=== PATIENT | female | born 1950 | race Caucasian/White ===

== ENCOUNTER 2016-12-19 14:40 | Emergency (ER) | payer MEDICARE ==
[2016-12-19] MEDS ORDERED: NS 0.9% 1000 ML* 1,000 ML IV ONE (16:19)
[2016-12-19 16:24] LABS: Hematocrit 41 % (35-47); Hemoglobin 13.2 g/dl (12.0-16.0); Mean Corpuscular HGB Conc 32 g/dl (31-36); Mean Corpuscular Hemoglobin 26 pg (27-31); Mean Corpuscular Volume 83 fL (80-97); Mean Platelet Volume 9 um3 (7.4-10.4); Red Blood Count 4.99 10^6/ul (4.0-5.4); Red Cell Distribution Width 15 % (10.5-15); White Blood Count 9.5 10^3/ul (3.5-10.8)
[2016-12-19 16:29] LABS: Urine Bilirubin Negative (Negative); Urine Glucose Negative (Negative); Urine Nitrite Negative (Negative)
[2016-12-19 16:38] LABS: Albumin 4.1 g/dL (3.2-5.2); BUN/Creatinine Ratio 18.9 (8-20); C Reactive Protein 8.48 mg/L (< 5.00); Calcium 9.7 mg/dL (8.6-10.3); EGFR African American 80.3 (>60); EGFR Non-African American 62.5 (>60); Globulin 3.8 g/dL (2-4); Potassium 3.7 mmol/L (3.5-5.0); Total Bilirubin 0.4 mg/dL (0.2-1.0); Total Protein 7.9 g/dL (6.4-8.9)
[2016-12-19 16:54] LABS: TSH (Thyroid Stimulating Horm) 0.74 mcIU/mL (0.34-5.60)
--- NOTE | 2016-12-19 16:57 | RAD ---
HISTORY: Chest pain COMPARISONS: None VIEWS:1: Single frontal portable view of the chest at 4:35 PM FINDINGS: LINES AND TUBES: None. CARDIOMEDIASTINAL SILHOUETTE: The cardiomediastinal silhouette is normal for portable technique. PLEURA: The costophrenic angles are sharp. No pleural abnormalities are noted. LUNG PARENCHYMA: There is hyperinflation. ABDOMEN: The upper abdomen is clear. There is no subphrenic gas. BONES AND SOFT TISSUES: No bone or soft tissue abnormalities are noted. IMPRESSION: HYPERINFLATION. NO ACTIVE CARDIOPULMONARY DISEASE.
[2016-12-19] MEDS ORDERED: Sucralfate TAB* 1 GM PO ONE (17:02)
[2016-12-19] MEDS ORDERED: Pantoprazole IV* 40 MG IV ONE (17:02)
[2016-12-19] MEDS ORDERED: Hyoscyamine TAB* 0.125 MG PO ONE (19:34)
[2016-12-19] MEDS ORDERED: Ondansetron INJ* 2 MG/ML VIAL IV ONE (19:34)
[2016-12-19 22:41] VITALS: BP 128/63
--- NOTE | 2016-12-19 22:53 | ED ---
Marcy Dumas Matthew, scribed for Rodolfo Savage MD on 12/19/16 at 1648 . Abdominal Pain/Female - HPI Summary HPI Summary: A 66 y/o female presents to the ED with gradually worsening, constant epigastric abdominal pain since 10:00 today. The pain is rated 7/10 in severity and described as squeezing. Associated symptoms include mid sternal chest pain and nausea. The patient denies vomiting and urinary symptoms. Nothing alleviates or worsens the pain. Currently, the pain has began to gradually alleviate. She had a normal BM today. SHx includes cholecystectomy. Hx of IBS. - History of Current Complaint Chief Complaint: EDAbdPain Stated Complaint: CHEST AND ABD PAIN Time Seen by Provider: 12/19/16 16:34 Hx Obtained From: Patient ?: No Onset/Duration: Gradual Onset, Lasting Hours, Still Present Timing: Constant Severity Initially: Moderate Severity Currently: Mild Pain Intensity: 7 Pain Scale Used: 0-10 Numeric Location: Epigastric Character: Other: - Squeezing/Pressure Aggravating Factor(s): Nothing Alleviating Factor(s): Nothing Associated Signs and Symptoms: Positive: Chest Pain - mid sternal Allergies/Adverse Reactions: Allergies Allergy/AdvReac Type Severity Reaction Status Date / Time Calamine Allergy Mild Hives Verified 12/19/16 20:29 Latex Allergy Mild Hives Verified 12/19/16 20:29 Penicillins [PCN] Allergy Mild Hives Verified 12/19/16 20:29 brazil nuts Allergy Severe Airway Uncoded 12/19/16 20:29 Obstruction PMH/Surg Hx/FS Hx/Imm Hx GI History: Reports: Hx Gastroesophageal Reflux Disease, Hx Irritable Bowel Musculoskeletal History: Reports: Hx Arthritis, Other Musculoskeletal History - Hx of OSTEOPENIA - Cancer History Hx Chemotherapy: No Hx Radiation Therapy: No Infectious Disease History: No Infectious Disease History: Denies: Traveled Outside the [place] in Last 30 Days - Family History Family History: No FHx of breast CA - Social History Alcohol Use: None Substance Use Type: Reports: None Smoking Status (MU): Never Smoked Tobacco Review of Systems Constitutional: Negative Eyes: Negative ENT: Negative Positive: Chest Pain - mid sternal Respiratory: Negative Positive: Abdominal Pain - epigastric pain , Nausea. Negative: Vomiting Genitourinary: Negative Positive: no symptoms reported Musculoskeletal: Negative Skin: Negative Neurological: Negative Psychological: Normal All Other Systems Reviewed And Are Negative: Yes Physical Exam Triage Information Reviewed: Yes Vital Signs On Initial Exam: Initial Vitals Temp Pulse Resp BP Pulse Ox 99.0 F 83 15 148/81 97 12/19/16 14:44 12/19/16 14:44 12/19/16 14:44 12/19/16 14:44 12/19/16 14:44 Vital Signs Reviewed: Yes Appearance: Positive: Well-Appearing, No Pain Distress Skin: Positive: Warm, Skin Color Reflects Adequate Perfusion, Dry Head/Face: Positive: Normal Head/Face Inspection Eyes: Positive: Normal ENT: Positive: Normal ENT inspection Neck: Positive: Supple, Nontender Respiratory/Lung Sounds: Positive: Clear to Auscultation, Breath Sounds Present Cardiovascular: Positive: RRR Abdomen Description: Positive: Soft, Other: - mild epigastric tenderness Bowel Sounds: Positive: Present Musculoskeletal: Positive: Normal, Strength/ROM Intact Neurological: Positive: Normal Psychiatric: Positive: Normal, Affect/Mood Appropriate Diagnostics - Vital Signs Vital Signs Temp Pulse Resp BP Pulse Ox 12/19/16 16:06 79 20 96 12/19/16 16:05 152/75 12/19/16 14:44 99.0 F 83 15 148/81 97 - Laboratory Lab Results: Lab Results 12/19/16 12/19/16 12/19/16 Range/Units 15:27 16:05 16:05 WBC 9.5 (3.5-10.8) 10^3/ul RBC 4.99 (4.0-5.4) 10^6/ul Hgb 13.2 (12.0-16.0) g/dl Hct 41 (35-47) % MCV 83 (80-97) fL MCH 26 L (27-31) pg MCHC 32 (31-36) g/dl RDW 15 (10.5-15) % Plt Count 197 (150-450) 10^3/ul MPV 9 (7.4-10.4) um3 Neut % (Auto) 90.8 H (38-83) % Lymph % (Auto) 5.0 L (25-47) % [place] % (Auto) 3.2 (1-9) % Eos % (Auto) 0.5 (0-6) % Baso % (Auto) 0.5 (0-2) % Absolute Neuts (auto) 8.7 H (1.5-7.7) 10^3/ul Absolute Lymphs (auto) 0.5 L (1.0-4.8) 10^3/ul Absolute Monos (auto) 0.3 (0-0.8) 10^3/ul Absolute Eos (auto) 0.1 (0-0.6) 10^3/ul Absolute Basos (auto) 0 (0-0.2) 10^3/ul Absolute Nucleated RBC 0 10^3/ul Nucleated RBC % 0 INR (Anticoag Therapy) 0.87 L (0.89-1.11) APTT 28.2 (26.0-36.3) seconds Sodium (133-145) mmol/L Potassium (3.5-5.0) mmol/L Chloride (101-111) mmol/L Carbon Dioxide (22-32) mmol/L Anion Gap (2-11) mmol/L BUN (6-24) mg/dL Creatinine (0.51-0.95) mg/dL Est GFR ( Amer) (>60) Est GFR (Non-Af Amer) (>60) BUN/Creatinine Ratio (8-20) Glucose (70-100) mg/dL Lactic Acid (0.5-2.0) mmol/L Calcium (8.6-10.3) mg/dL Magnesium (1.9-2.7) mg/dL Total Bilirubin (0.2-1.0) mg/dL AST (13-39) U/L ALT (7-52) U/L Alkaline Phosphatase (34-104) U/L Total Creatine Kinase (10-223) U/L CK-MB (CK-2) Troponin I (<0.04) ng/mL C-Reactive Protein (< 5.00) mg/L Total Protein (6.4-8.9) g/dL Albumin (3.2-5.2) g/dL Globulin (2-4) g/dL Albumin/Globulin Ratio (1-3) Lipase (11.0-82.0) U/L TSH Urine Color Yellow Urine Appearance Clear Urine pH 6.0 (5-9) Ur Specific [place] 1.016 (1.010-1.030) Urine Protein Negative (Negative) Urine Ketones Negative (Negative) Urine Blood Negative (Negative) Urine Nitrate Negative (Negative) Urine Bilirubin Negative (Negative) Urine Urobilinogen Negative (Negative) Ur Leukocyte Esterase Negative (Negative) Urine Glucose Negative (Negative) Urine Ascorbic Acid * H (Negative) 12/19/16 12/19/16 Range/Units 16:05 16:05 WBC (3.5-10.8) 10^3/ul RBC (4.0-5.4) 10^6/ul Hgb (12.0-16.0) g/dl Hct (35-47) % MCV (80-97) fL MCH (27-31) pg MCHC (31-36) g/dl RDW (10.5-15) % Plt Count (150-450) 10^3/ul MPV (7.4-10.4) um3 Neut % (Auto) (38-83) % Lymph % (Auto) (25-47) % [place] % (Auto) (1-9) % Eos % (Auto) (0-6) % Baso % (Auto) (0-2) % Absolute Neuts (auto) (1.5-7.7) 10^3/ul Absolute Lymphs (auto) (1.0-4.8) 10^3/ul Absolute Monos (auto) (0-0.8) 10^3/ul Absolute Eos (auto) (0-0.6) 10^3/ul Absolute Basos (auto) (0-0.2) 10^3/ul Absolute Nucleated RBC 10^3/ul Nucleated RBC % INR (Anticoag Therapy) (0.89-1.11) APTT (26.0-36.3) seconds Sodium 133 (133-145) mmol/L Potassium 3.7 (3.5-5.0) mmol/L Chloride 99 L (101-111) mmol/L Carbon Dioxide 29 (22-32) mmol/L Anion Gap 5 (2-11) mmol/L BUN 17 (6-24) mg/dL Creatinine 0.90 (0.51-0.95) mg/dL Est GFR ( Amer) 80.3 (>60) Est GFR (Non-Af Amer) 62.5 (>60) BUN/Creatinine Ratio 18.9 (8-20) Glucose 118 H (70-100) mg/dL Lactic Acid 1.6 (0.5-2.0) mmol/L Calcium 9.7 (8.6-10.3) mg/dL Magnesium 2.0 (1.9-2.7) mg/dL Total Bilirubin 0.40 (0.2-1.0) mg/dL AST 15 (13-39) U/L ALT 12 (7-52) U/L Alkaline Phosphatase 61 (34-104) U/L Total Creatine Kinase 89 (10-223) U/L CK-MB (CK-2) Pending Troponin I 0.00 (<0.04) ng/mL C-Reactive Protein 8.48 H (< 5.00) mg/L Total Protein 7.9 (6.4-8.9) g/dL Albumin 4.1 (3.2-5.2) g/dL Globulin 3.8 (2-4) g/dL Albumin/Globulin Ratio 1.1 (1-3) Lipase 55 (11.0-82.0) U/L TSH Pending Urine Color Urine Appearance Urine pH (5-9) Ur Specific [place] (1.010-1.030) Urine Protein (Negative) Urine Ketones (Negative) Urine Blood (Negative) Urine Nitrate (Negative) Urine Bilirubin (Negative) Urine Urobilinogen (Negative) Ur Leukocyte Esterase (Negative) Urine Glucose (Negative) Urine Ascorbic Acid (Negative) Result Diagrams: 12/19/16 16:05 12/19/16 16:05 Lab Statement: Any lab studies that have been ordered have been reviewed, and results considered in the medical decision making process. - Radiology CXR Xray Interpretation: No Acute Changes - IMPRESSION: HYPERINFLATION. NO ACTIVE CARDIOPULMONARY DISEASE. Radiology Interpretation Completed By: Radiologist - EKG 14:47 Cardiac Rate: NL - 84 bpm EKG Rhythm: Sinus Rhythm Abdominal Pain Fem Course/Dx - Course Course Of Treatment: A 66 y/o female presents to the ED with gradually worsening , constant epigastric abdominal pain since 10:00 today. Labs were reviewed. CXR shows no active cardiopulmonary disease. EKG shows NSR at 84 bpm. In the ED course, the patient was given Anaspaz IV fluids, Zofran, Protonix, and Carafate. The patient did well in the ED and will be discharged home to follow- up with her PCP. While here she began to have some episodes of diarrhea and this may be viral. - Diagnoses Provider Diagnoses: Abdominal pain Discharge - Discharge Plan Condition: Stable Disposition: HOME Patient Education Materials: Abdominal Pain (ED) Referrals: [facility] PHYSICIAN REFERRAL [Outside] Additional Instructions: Please follow-up with your primary care physician in 2 days. The documentation as recorded by the Marcy arriaga Matthew accurately reflects the service I personally performed and the decisions made by me, Rodolfo Savage MD.
== END 2016-12-19 22:46 | disposition home or self-care (01) ==
LOC: ED 14:40
DX: R10.13 Epigastric pain (principal); K21.9 Gastro-esophageal reflux disease without esophagitis; M85.80 Other specified disorders of bone density and structure, unspecified site; Z88.0 Allergy status to penicillin
CPT/HCPCS: 36415; 71010; 80053; 81003; 82550; 82553; 83605; 83690; 83735; 83880; 84443; 84484; 85025; 85610; 85730; 86140; 93005; 96360; 96374; 96375; A9270-GY; J2405

== ENCOUNTER 2018-04-04 06:50 | Day surgery (SDC) | payer MEDICARE ==
[~2018-04-04 06:50] MED LIST: Acetaminophen TAB* 325 MG PO PRN; Buffered Lidocaine 0.9% SYRIN* 5 ML/SYR SYRINGE INTRADERM ONE
[2018-04-04] MEDS ORDERED: Midazolam* 1 MG/ML 2 ML VIAL (2 MG) ONE ×2 (07:25→07:36)
[2018-04-04 07:58] VITALS: BP 158/74
[2018-04-04] MEDS ORDERED: Ketorolac 0.5% OPHTH (NF) 0.5 % 5 ML BTL ONE (13:01)
[2018-04-04] MEDS ORDERED: Cyclopentolate 1% OPTH.SOL* 2 ML BTL ONE (13:01)
[2018-04-04] MEDS ORDERED: Lidocaine 1%* 5 ML VIAL ONE (13:01)
[2018-04-04] MEDS ORDERED: Tropicamide 1% OPTH.SOL* BTL ONE (13:01)
[2018-04-04] MEDS ORDERED: Phenylephrine 2.5% OPTH.SOL* 2 ML BTL ONE (13:01)
[2018-04-04] MEDS ORDERED: Neomycin/Polymy/Dex OPHTH.OIN* 3.5 GM ONE (13:01)
[2018-04-04] MEDS ORDERED: Tetracaine 0.5% OPTH.SOL 4 ML* 1 DROP BTL ONE (13:01)
--- NOTE | 2018-04-04 15:52 | OP ---
DATE OF OPERATION: 04/04/18 [facility] DATE OF : 48 SURGEON: Dr. Otoniel Zamora REMOTE SENSING ENGINEER: None. ANESTHESIA: Topical with intravenous sedation. PRE-OP DIAGNOSIS: Cataract, left eye. POST-OP DIAGNOSIS: Cataract, left eye. OPERATIVE PROCEDURE: Phacoemulsification and cataract extraction with posterior chamber intraocular lens implant, left eye. COMPLICATIONS: None. BLOOD LOSS: None. DESCRIPTION OF PROCEDURE: The patient was brought to the operating room and received a small amount of intravenous sedation. A drop of Tetracaine was placed in her left eye. She was prepped and draped in the usual sterile fashion for ophthalmic surgery and attention was directed to the left eye where a speculum was placed. A paracentesis was created at the 5 o'clock position and 0.1 cc of 1 percent preservative-free Lidocaine was injected into the anterior chamber followed by DisCoVisc. The eye was digitally stabilized while a 2.75 mm keratome was used to create a triplanar clear corneal incision at the 3 o'clock position. A continuous curvilinear capsulorrhexis was created with a cystotome and Utrata forceps. BSS on a cannula was used to hydrodissect the lens from the capsule. Phacoemulsification was performed in a divide-and- conquer technique to create four fragments which were removed. Residual cortical material was removed with irrigation and aspiration. DisCoVisc was used to inflate the capsular bag and an AU00T0 20.0 diopter lens was folded and inserted into the capsular bag. DisCoVisc was removed using irrigation and aspiration. BSS on a cannula was used to hydrate the corneal stroma and seal the wound. At the end of the case the pupil was round and the lens was centered. The eye was of normal pressure and the wound was water tight. The speculum was removed and topical Maxitrol ointment was placed on the surface of the eye. The eye was closed, patched and shielded and the patient was sent to the recovery room in stable condition with post operative instructions and follow-up appointment given. [id number]/CPS #: [id number] ANIL
== END 2018-04-04 07:50 | disposition home or self-care (01) ==
LOC: OREAST 06:50
PROVIDERS: ATTEND Ophthalmology
DX: H25.042 Posterior subcapsular polar age-related cataract, left eye (principal); E78.5 Hyperlipidemia, unspecified; K21.9 Gastro-esophageal reflux disease without esophagitis
CPT/HCPCS: A9270-GY; J2250; V2632

== ENCOUNTER 2018-04-11 06:16 | Day surgery (SDC) | payer MEDICARE ==
[2018-04-11] MEDS ORDERED: fentaNYL* 50 MCG/ML 2 ML VIAL (100 MCG VIAL) ONE (07:11)
[2018-04-11] MEDS ORDERED: Midazolam* 1 MG/ML 2 ML VIAL (2 MG) ONE (07:11)
[2018-04-11 07:59] VITALS: BP 137/74
[2018-04-11] MEDS ORDERED: Lidocaine 1%* 5 ML VIAL ONE (09:06)
[2018-04-11] MEDS ORDERED: Tetracaine 0.5% OPTH.SOL 4 ML* 1 DROP BTL ONE (09:06)
[2018-04-11] MEDS ORDERED: Ketorolac 0.5% OPHTH (NF) 0.5 % 5 ML BTL ONE (09:06)
[2018-04-11] MEDS ORDERED: Phenylephrine 2.5% OPTH.SOL* 2 ML BTL ONE (09:06)
[2018-04-11] MEDS ORDERED: Neomycin/Polymy/Dex OPHTH.OIN* 3.5 GM ONE (09:06)
[2018-04-11] MEDS ORDERED: Tropicamide 1% OPTH.SOL* BTL ONE (09:06)
[2018-04-11] MEDS ORDERED: Cyclopentolate 1% OPTH.SOL* 2 ML BTL ONE (09:06)
--- NOTE | 2018-04-11 22:32 | OP ---
DATE OF OPERATION: 04/11/18 [facility] DATE OF : 48 SURGEON: Dr. Otoniel Zamora. PHOTOLITHOGRAPHIC STRIPPER: None. ANESTHESIA: Topical with intravenous sedation. PRE-OP DIAGNOSIS: Cataract, right eye. POST-OP DIAGNOSIS: Cataract, right eye. OPERATIVE PROCEDURE: Phacoemulsification and cataract extraction with posterior chamber intraocular lens implant, right eye. COMPLICATIONS: None. BLOOD LOSS: None. DESCRIPTION OF PROCEDURE: The patient was brought to the operating room and received a small amount of intra-venous sedation. A drop of Tetracaine was placed in her right eye. She was prepped and draped in the usual sterile fashion for ophthalmic surgery and attention was directed to the right eye where a speculum was placed. A paracentesis was created at the 11 o'clock position and 0.1 cc of 1 percent preservative-free Lidocaine was injected into the anterior chamber followed by DisCoVisc. The eye was digitally stabilized while a 2.75 mm keratome was used to create a triplanar clear corneal incision at the 9 o'clock position. A continuous curvilinear capsulorrhexis was created with a cystotome and Utrata forceps. BSS on a cannula was used to hydrodissect the lens from the capsule. Phacoemulsification was performed in a divide-and- conquer technique to create four fragments which were removed. Residual cortical material was removed with irrigation and aspiration. DisCoVisc was used to inflate the capsular bag and an AU00T0 20.5 diopter lens was folded and inserted into the capsular bag. DisCoVisc was removed using irrigation and aspiration. BSS on a cannula was used to hydrate the corneal stroma and seal the wound. At the end of the case the pupil was round and the lens was centered. The eye was of normal pressure and the wound was water tight. The speculum was removed and topical Maxitrol ointment was placed on the surface of the eye. The eye was closed, patched and shielded and the patient was sent to the recovery room in stable condition with post operative instructions and follow-up appointment given. [id number]/CPS #: [id number] ANIL
== END 2018-04-11 08:06 | disposition home or self-care (01) ==
LOC: OREAST 06:16
PROVIDERS: ATTEND Ophthalmology
DX: H25.041 Posterior subcapsular polar age-related cataract, right eye (principal); K21.9 Gastro-esophageal reflux disease without esophagitis; E78.5 Hyperlipidemia, unspecified; G62.9 Polyneuropathy, unspecified; M19.90 Unspecified osteoarthritis, unspecified site; M85.80 Other specified disorders of bone density and structure, unspecified site; K58.9 Irritable bowel syndrome, unspecified
CPT/HCPCS: A9270-GY; J2250; J3010; V2632

== ENCOUNTER 2019-07-09 10:05 | Observation (INO) | payer MEDICARE ==
--- OUTSIDE RECORDS SUMMARY | 2019-07-09 10:13 | XMS REPORT | Continuity of Care Document ---
:1950 External Reference #:[id number] Author Name Otoneil Zamora M.D. Address [address] [place] [address] Problems Description No Information Available Social History Type Date Description Comments Sex Unknown ETOH Use Never used alcohol Tobacco Use Start: Unknown Patient has never smoked Smoking Status Reviewed: 06/27/19 Patient has never smoked Allergies, Adverse Reactions, Alerts Active Allergies Reaction Severity Comments Date Penicillin V 03/02/2017 Latex 03/02/2017 [place] Nuts 03/02/2017 Medications Active Medications SIG Qnty Indications Ordering Provider Date Omeprazole 20mg Unknown Tablets DR Immunizations Description No Information Available Vital Signs Date Vital Result Comment 06/27/2019 2:01pm Intraocular Pressure Right Eye 14 mmHg Intraocular Pressure Left Eye 14 mmHg 04/18/2018 9:56am Intraocular Pressure Right Eye 16 mmHg Intraocular Pressure Left Eye 16 mmHg Results Description No Information Available Procedures Date Code Description Status 06/27/2019 55972 Ophthalmoscopy Subsequent Completed 06/27/2019 99463 Oct Retina Completed 06/27/2019 32875 Eye Exam Est Comprehensive Completed Medical Devices Description No Information Available Encounters Description No Information Available Assessments Date Code Description Provider 06/27/2019 H26.491 Other secondary cataract, right eye Otoniel Zamora M.D. 06/27/2019 H26.492 Other secondary cataract, left eye Otoniel Zamora M.D. 06/27/2019 H35.371 Puckering of macula, right eye Otoniel Zamora M.D. Plan of Treatment 06/27/2019 - Otoniel Zamora M.D.H26.491 Other secondary cataract, right eyeH26.492 Other secondary cataract, left eyeH35.371 Puckering of macula, right eyeFollow up:yag cap od, then os then Dr Anaya Functional Status Description No Information Available Mental Status Description No Information Available Referrals Description No Information Available
[2019-07-09 10:42] LABS: ABS Eosinophils 0.1 10^3/ul (0-0.6); ABS Lymphocytes 2.1 10^3/ul (1.0-4.8); ABS Monocytes 0.6 10^3/ul (0-0.8); ABS Neutrophils 4.3 10^3/ul (1.5-7.7); Eosinophil % 1.3 %; Hematocrit 39 % (35-47); Hemoglobin 12.9 g/dL (12.0-16.0); Lymphocyte % 29.3 %; Mean Corpuscular HGB Conc 33 g/dL (31-36); Mean Corpuscular Hemoglobin 28 pg (27-31); Mean Corpuscular Volume 84 fL (80-97); Mean Platelet Volume 9.5 fL (7.4-10.4); Nucleated Red Blood Cells % 0.1; Platelet Count 208 10^3/uL (150-450); Red Blood Count 4.67 10^6 /uL (3.70-4.87); Red Cell Distribution Width 15 % (10-15); White Blood Count 7.1 10^3/uL (3.5-10.8)
[2019-07-09 10:55] LABS: Activated Partial Thrombo Time 35.7 seconds (26.0-38.0); INR 0.94 (0.82-1.09)
--- NOTE | 2019-07-09 11:01 | ED ---
HPI Chest Pain - HPI Summary HPI Summary: This pt is a 68 y/o female presenting to [facility] c/o sudden onset of chest pain today. Pt reports she was at the [place] sitting down in the waiting room for her physical when she began to have midsternal chest pain. She describes the chest pain as pressure with radiation to her neck and jaw. Pt notes her chest pain resolved after 20 minutes. Currently she notes she feels a "pinch feeling" in her chest, but her pain is better than at onset. Pt reports she has chest pain periodically. She states she had chest pain one day while ambulating but resolved on its own. Pt notes her chest pain generally is in the center and when it does get intense it radiates to her neck and jaw. Denies hx of DC. PMHx includes high cholesterol (for which she takes OTC medication), endometriosis. Denies taking any prescribed medications on a daily basis. Pt takes a baby aspirin every night. Denies tobacco or alcohol use. - History of Current Complaint Chief Complaint: EDChestPainROMI Time Seen by Provider: 07/09/19 10:28 Hx Obtained From: Patient Onset/Duration: Started Hours Ago, Still Present Timing: Lasting Minutes - 20 minutes Current Severity: Mild Pain Intensity: 2 Pain Scale Used: 0-10 Numeric Chest Pain Location: Mid Sternal Chest Pain Radiates: Yes Chest Pain Radiates To:: Jaw, Neck Character: Pressure/Squeezing - Pressure Aggravating Factor(s): Nothing Alleviating Factor(s): Nothing Associated Signs and Symptoms: Positive: Chest Pain. Negative: Fever, Chills, Nausea, Vomiting - Allergy/Home Medications Allergies/Adverse Reactions: Allergies Allergy/AdvReac Type Severity Reaction Status Date / Time [place] nut Allergy Severe Airway Verified 07/09/19 14:31 Obstruction calamine Allergy Hives Verified 07/09/19 10:32 latex Allergy Hives Verified 07/09/19 10:32 Penicillins Allergy Hives Verified 07/09/19 10:32 Home Medications: Home Medications Plant Stanol Deisy [Cholestoff Plus] 450 mg PO QPM 07/09/19 [History Confirmed 07/09/19] Plant Stanol Deisy [Cholestoff Plus] 900 mg PO QAM 07/09/19 [History Confirmed 07/09/19] PMH/Surg Hx/FS Hx/Imm Hx Endocrine/Hematology History: Reports: Hx Anemia - many years ago Respiratory History: Denies: Other Respiratory Problems/Disorders GI History: Reports: Hx Gastroesophageal Reflux Disease, Hx Irritable Bowel Denies: Other GI Disorders Musculoskeletal History: Reports: Hx Arthritis - left hip and fingers, Other Musculoskeletal History - Hx of OSTEOPENIA Sensory History: Reports: Hx Cataracts - costa, Hx Contacts or Glasses - glasses Denies: Hx Hearing Aid Opthamlomology History: Reports: Hx Cataracts - costa, Hx Contacts or Glasses - glasses Neurological History: Reports: Hx Nerve Disease - neuropathy feet and right thigh, Other Neuro Impairments/Disorders - Cancer History Hx Chemotherapy: No Hx Radiation Therapy: No - Surgical History Surgical History: Yes Surgery Procedure, Year, and Place: laparoscopy d/c 1985, [facility] [place]. gallbladder, 2999, [facility] [place] Hx Anesthesia Reactions: Yes - nausea Infectious Disease History: No Infectious Disease History: Denies: Traveled Outside the [place] in Last 30 Days - Family History Family History: No FHx of breast CA - Social History Alcohol Use: None Substance Use Type: Reports: None Smoking Status (MU): Never Smoked Tobacco Review of Systems Negative: Fever, Chills Positive: Chest Pain Negative: Vomiting, Nausea All Other Systems Reviewed And Are Negative: Yes Physical Exam - Summary Physical Exam Summary: GENERAL: Patient is a well-developed and nourished female who is lying comfortable in the stretcher. Patient is not in any acute respiratory distress. HEAD AND FACE: Normocephalic EYES: PERRLA, EOMI x 2. EARS: Hearing grossly intact. MOUTH: Oropharynx within normal limits. NECK: Supple, trachea is midline, no adenopathy, no JVD, no carotid bruit. CHEST: Symmetric, no tenderness at palpation LUNGS: Clear to auscultation bilaterally. No wheezing or crackles. CVS: Regular rate and rhythm, S1 and S2 present, no murmurs or gallops appreciated. ABDOMEN: Soft, non-tender. Bowel sounds are normal. No abnormal abdominal pulsations. EXTREMITIES: Full ROM in all major joints, no edema, no cyanosis or clubbing. NEURO: Alert and oriented x 3. No acute neurological deficits. Speech is normal and follows commands. SKIN: Dry and warm Triage Information Reviewed: Yes Vital Signs On Initial Exam: Initial Vitals Temp Pulse Resp BP Pulse Ox 98.0 F 55 20 181/76 99 07/09/19 10:12 07/09/19 10:12 07/09/19 10:12 07/09/19 10:12 07/09/19 10:12 Vital Signs Reviewed: Yes Diagnostics - Vital Signs Vital Signs Temp Pulse Resp BP Pulse Ox 07/09/19 10:12 98.0 F 55 20 181/76 99 - Laboratory Lab Results: Lab Results 07/09/19 07/09/19 Range/Units 10:32 10:32 WBC 7.1 (3.5-10.8) 10^3/uL RBC 4.67 (3.70-4.87) 10^6 /uL Hgb 12.9 (12.0-16.0) g/dL Hct 39 (35-47) % MCV 84 (80-97) fL MCH 28 (27-31) pg MCHC 33 (31-36) g/dL RDW 15 (10-15) % Plt Count 208 (150-450) 10^3/uL MPV 9.5 (7.4-10.4) fL Neut % (Auto) 60.5 % Lymph % (Auto) 29.3 % [place] % (Auto) 8.3 % Eos % (Auto) 1.3 % Baso % (Auto) 0.6 % Absolute Neuts (auto) 4.3 (1.5-7.7) 10^3/ul Absolute Lymphs (auto) 2.1 (1.0-4.8) 10^3/ul Absolute Monos (auto) 0.6 (0-0.8) 10^3/ul Absolute Eos (auto) 0.1 (0-0.6) 10^3/ul Absolute Basos (auto) 0.0 (0-0.2) 10^3/ul Absolute Nucleated RBC 0.0 10^3/ul Nucleated RBC % 0.1 INR (Anticoag Therapy) 0.94 (0.82-1.09) APTT 35.7 (26.0-38.0) seconds Result Diagrams: 07/09/19 10:32 07/09/19 10:32 Lab Statement: Any lab studies that have been ordered have been reviewed, and results considered in the medical decision making process. - Radiology Chest XR Radiology Interpretation Completed By: Radiologist Summary of Radiographic Findings: IMPRESSION: Hyperinflation, no evidence for acute finding. Dr. Velasquez has reviewed this report. - EKG 10:06 Cardiac Rate: NL - at 61 bpm EKG Rhythm: Sinus Rhythm Summary of EKG Findings: RSR' Chest Pain Course/Dx - Course Assessment/Plan: Pt is a 68 y/o female presenting to [facility] c/o sudden onset of chest pain radiating to her neck and jaw today. Pt reports she was at the [place] sitting down in the waiting room for her physical when she began to have midsternal chest pain. Physical exam is unremarkable. Lab results are unremarkable. Chest XR shows hyperinflation, no evidence for acute finding. In the ED course the pt was given aspirin, nitroglycerin. Discussed the case with Dr. Wright, hospitalist, who accepted the pt for admission for further work up. I discussed results with patient. The patient agrees with this plan. - Diagnoses Provider Diagnoses: Chest pain - Provider Notifications Discussed Care Of Patient With: Maribell Wright - hospitalist Time Discussed With Above Provider: 12:00 Instructed by Provider To: Admit As Inpatient Discharge ED - Sign-Out/Discharge Documenting (check all that apply): Patient Departure - Admit to [facility] Patient Received Moderate/Deep Sedation with Procedure: No - Discharge Plan Condition: Stable Disposition: ADMITTED TO [facility] - Billing Disposition and Condition Condition: STABLE Disposition: Admitted to [facility] - Attestation Statements Document Initiated by Gui: Yes Documenting Scribe: Maribell Soto Provider For Whom Gui is Documenting (Include Credential): Kee Velasquez MD Scribe Attestation: Maribell Dumas, scribed for Kee Velasquez MD on 07/09/19 at 2050. Scribe Documentation Reviewed: Yes Provider Attestation: The documentation as recorded by the Maribell arriaga accurately reflects the service I personally performed and the decisions made by me, Kee Velasquez MD Status of Scribe Document: Viewed
[2019-07-09] MEDS ORDERED: Aspirin 81 mg CHEW TAB* 81 MG TAB.CHEW PO ONE (11:09)
[2019-07-09] MEDS ORDERED: Nitroglycerin TAB 0.4 MG* 0.4 MG TAB SL ONE (11:10)
[2019-07-09 11:32] LABS: Albumin 4.5 g/dL (3.2-5.2); Albumin/Globulin Ratio 1.5 (1-3); BUN/Creatinine Ratio 19.8 (8-20); Calcium 9.7 mg/dL (8.6-10.3); EGFR African American 74.2 (>60); EGFR Non-African American 61.3 (>60); Globulin 3.1 g/dL (2-4); Potassium 3.9 mmol/L (3.5-5.0); Total Bilirubin 0.4 mg/dL (0.2-1.0); Total Protein 7.6 g/dL (6.4-8.9)
[2019-07-09 13:46] LABS: Magnesium 2.3 mg/dL (1.9-2.7)
[2019-07-09] MEDS ORDERED: Magnesium Hydroxide LIQ* 30 ML UDC PO PRN (13:56)
[2019-07-09] MEDS ORDERED: Acetaminophen TAB* 325 MG PO PRN (13:56)
[2019-07-09] MEDS ORDERED: Al Hydrox/Mg Hydrox/Simet LIQ* 30 ML UDC PO PRN (13:56)
[2019-07-09 15:37] LABS: HDL Cholesterol 71.4 mg/dL
[2019-07-09] MEDS ORDERED: Aspirin EC TAB* 81 MG TAB.EC PO SCH (18:00)
[2019-07-09] MEDS ORDERED: Ascorbic Acid TAB* 500 MG PO SCH (18:00)
--- NOTE | 2019-07-09 18:05 | HP ---
CC: Dr. Aung Dexter * HISTORY AND PHYSICAL: DATE OF ADMISSION: 07/09/19 PRIMARY CARE PHYSICIAN: Aung Dexter MD HEALTHCARE PROXY: Her , Satnam. CODE STATUS: Full. CHIEF COMPLAINT: Acute onset chest pain. HISTORY OF PRESENT ILLNESS: Ms. Bear is a 68-year-old woman with peripheral neuropathy of unknown etiology and GERD, who is presenting from [facility] after acute onset of substernal pressure like chest pain. She reports this pain came on while she was seated in the [facility] waiting for her primary care appointment to follow up on labs that she had done the prior week. She denies associated anxiety, shortness of breath, diaphoresis, fevers, abdominal pain, nausea, vomiting, constipation, diarrhea, or dysuria. She states that the chest pain was nonexertional and radiated to her jaw and neck. She told the staff at the clinic and they recommended that she come to the emergency room. In emergency room, she was given aspirin and nitroglycerin, her chest pain completely resolved. She was asked to be admitted for inpatient stress test given her elevated risk score. PAST MEDICAL HISTORY: 1. Neuropathy, undergoing workup for etiology. 2. Heartburn. 3. Hyperlipidemia. HOME MEDICATIONS: 1. Aspirin 81 mg daily. 2. Omeprazole 20 mg daily. 3. Glucosamine. 4. Vitamin D3. 5. Vitamin C. 6. Plant stanol nadege. ALLERGIES: 1. PENICILLINS caused hives. 2. LATEX caused hives. 3. CALAMINE LOTION caused hives. 4. BRAZIL NUTS caused anaphylaxis. FAMILY HISTORY: The patient reports her mother had aortic stenosis. She reports she has had aunts and uncles with heart attacks. She reports strokes with her bother, mother and father. SOCIAL HISTORY: The patient lives with her , Satnam. She is a retired insurance and benefits clerk. She denies tobacco, alcohol, or other drugs. REVIEW OF SYSTEMS: Complete 10-point ROS performed and pertinent positives and negatives are listed in the HPI. PHYSICAL EXAMINATION GENERAL: She is a well-appearing woman in no acute distress, is alert and interactive. VITAL SIGNS: Afebrile, heart rate 60s, blood pressure 139/73, respiratory rate 14, oxygen saturation 100% on room air. NECK: No JVD. Supple. LUNGS: Clear to auscultation bilaterally. Symmetrical chest expansion. HEART: Regular rate and rhythm. No murmurs, gallops, or rubs. ABDOMEN: Soft, nontender, nondistended. Normoactive bowel sounds. LOWER EXTREMITIES: Warm and well perfused without evidence of edema. No chronic venous insufficiency changes. NEURO: No focal weakness. A and O x3. DIAGNOSTIC STUDIES/LAB DATA: CBC, coags, BMP, LFTs all unremarkable. Hemoglobin A1c 5.9. Troponin negative x3. Triglycerides 113, LDL 143, total cholesterol 237, HDL 71. Chest x-ray with possible hyperinflation, but no acute cardiopulmonary disease. EKG with normal sinus rhythm at 61, no acute ischemic changes. ASSESSMENT AND PLAN: Ms. Bear is a 68-year-old woman with neuropathy, hyperlipidemia and significant family history for atherosclerotic cardiovascular disease, who is presenting with acute onset nonexertional substernal chest pressure that was relieved with nitroglycerin. Her ALETA score is 2, so she will be admitted for inpatient stress test. 1. Chest pain. This is concerning for coronary artery disease given the quality of chest pain and its improvement with nitroglycerin. She also does have a significant family history as well as hyperlipidemia. She will be admitted for a nuclear chemical stress test and she reports what sounds like claudication in her lower extremities and does not know if she can exert herself on a treadmill. We will also order a transthoracic echocardiogram. She has already had three negative troponins. She will be continued on telemetry. We will repeat EKG if symptoms occur. Continue home aspirin 81 mg daily. 2. Gastroesophageal reflux disease. Continue home omeprazole 40 mg daily. 3. DVT prophylaxis: Initiate Lovenox daily. 4. Code status. Full code. TIME SPENT: Approximately 60 minutes was spent on the admission of this patient , more than half of which was spent at bedside for interview and exam. [id number]/[facility] #: [id number] [facility] CENTERKalpesh
[2019-07-09] MEDS ORDERED: Enoxaparin(*) 40 MG/0.4 ML SYR SUBCUT SCH (21:00)
[2019-07-10] MEDS ORDERED: Pantoprazole TAB * 40 MG TAB PO SCH (09:00)
[2019-07-10] MEDS ORDERED: Cholecalciferol TAB* 400 UNIT PO SCH (09:00)
[2019-07-10] MEDS ORDERED: Regadenoson* 0.4 MG/5 ML SYRINGE ONE (10:54)
[2019-07-10] MEDS ORDERED: Aminophylline IV* 25 MG/ML 10 ML VIAL ONE (10:55)
[2019-07-10 13:14] VITALS: BP 144/77
--- NOTE | 2019-07-10 22:52 | DS ---
CC: Dr. Dexter; Carey Kebede NP, [facility] * DISCHARGE SUMMARY: DATE OF ADMISSION: 07/09/19 DATE OF DISCHARGE: 07/10/19 PRIMARY CARE PROVIDER: Dr. Dexetr. DISPOSITION AT DISCHARGE: Home. CONDITION AT DISCHARGE: Stable. DISCHARGE DIAGNOSES: Chest pain with acute coronary syndrome ruled out with cardiac stress test documented as "low risk," but a small area of anteroseptal ischemia was noted. The patient's ejection fraction was 70%. MEDICATIONS AT DISCHARGE: Include: 1. Aspirin 81 mg daily. 2. Glucosamine 1000 mg daily. 3. Vitamin D3 400 units daily. 4. Calcium with vitamin D chewable 1 tablet daily. 5. Ascorbic acid 500 mg daily. 6. Plant stanol nadege 450 mg q.p.m. and 900 mg q.a.m. 7. Omeprazole 20 mg daily. LABORATORY DATA AND STUDIES: Performed during the hospital stay included: Troponin had been throughout the patient's hospital stay at 0. The patient's nonfasting lipid profile obtained at 10 a.m. on the day of admission showed total cholesterol of 237, LDL was 143, HDL was 71, and triglycerides of 113. The patient's CBC was grossly unremarkable. The patient's bilateral lower extremity arterial studies showed no evidence of peripheral vascular disease. The patient's nuclear medicine cardiac stress test documented, on 07/10/19, showed impression: Findings suggestive of small area of ischemia in the anteroseptal wall. Assessment: "Low risk." Furthermore it showed that the EF was 70% and transient ischemic dilation ratio was at 1.05, which was within normal limits. HOSPITALIZATION COURSE: Ms. Bear is a very nice 68-year-old female, who presented with chest pain. The chest pain occurred when she was waiting for primary care provider, Carey Kebede, to see her for routine physical evaluation. Subsequently, she was sent to the ED. Her EKG was unremarkable and her troponins were unremarkable. She walked on a treadmill and the exercise did not reproduce any chest pain. In fact, the patient was chest pain free since her arrival to the ED. Her nuclear images though showed a possibility of small area of reversible ischemia. Her transient ischemic dilation index was low and the patient's EF was 70%. At this point, I discussed with the patient that the patient may have a tiny area of coronary vessel disease in a small blood vessel that likely is not amenable for intervention. She did not have acute coronary syndrome and likelihood of the chest pain that she presented with to be symptom of cardiac disease was very low. I suspect that if she does have a small blood vessel disease in the area indicated on the nuclear images it had been asymptomatic. Nevertheless, she should continue her aspirin and control her cholesterol and blood pressure. Her blood pressure had been in the 140s. Her LDL was noted to be in the 140s also, but it appeared to be checked when the patient was nonfasting. At this point, the patient is not comfortable with starting Lipitor, but she is going to follow up with her primary care provider in regards to further monitoring of her blood pressure and her cholesterol. She also feels that her blood pressure usually runs in the 120s and the 140s range, because she had been stressed out during the hospital stay. At this point, we are not instituting any changes in her outpatient medications and the patient is to follow up with her primary care provider in regards to further management of her cholesterol and blood pressure. PHYSICAL EXAMINATION: At discharge is grossly unchanged from admission. [id number]/[facility] #: [id number] ANIL
== END 2019-07-10 15:20 | disposition home or self-care (01) ==
LOC: ED 10:05 → MEDTELE 14:27
PROVIDERS: ADMIT Internal Medicine; ATTEND Internal Medicine
DX: R07.9 Chest pain, unspecified (principal); G62.9 Polyneuropathy, unspecified; R12 Heartburn; E78.5 Hyperlipidemia, unspecified; Z79.82 Long term (current) use of aspirin; Z79.899 Other long term (current) drug therapy; Z88.0 Allergy status to penicillin; E78.00 Pure hypercholesterolemia, unspecified; N80.9 Endometriosis, unspecified; K21.9 Gastro-esophageal reflux disease without esophagitis
CPT/HCPCS: 36415; 71045; 78452; 80053; 80061; 83036; 83735; 84484; 85025; 85610; 85730; 93005; 93017; 93922; 99285; A9270-GY; A9502; G0378; J0280; J1650; J2785

== ENCOUNTER 2023-12-05 15:32 | Observation (INO) ==
[2023-12-05] MEDS: Ondansetron 4 mg VIAL 2 MG/ML 2 ml VIAL IV ONE (16:34)
[2023-12-05] MEDS: Lactated Ringers 1000 ml BAG 1,000 ML IV ONE (16:34)
[2023-12-05 16:44] LABS: ABS Basophils 0.1 10^3/uL (0.0-0.1); ABS Lymphocytes 0.7 10^3/uL (1.0-4.8); ABS Monocytes 0.4 10^3/uL (0.0-0.9); ABS Neutrophils 12.8 10^3/uL (1.5-7.6); Hematocrit 40.6 % (35-45); Hemoglobin 13.7 g/dL (11.5-14.3); Lymphocyte % 5.1 %; Mean Corpuscular Hemoglobin 29.8 pg (27-33); Mean Corpuscular Hgb Conc 33.7 g/dL (31-36); Mean Corpuscular Volume 88.5 fL (80-97); Platelet Count 197 10^3/uL (150-450); Red Blood Count 4.58 10^6/uL (3.63-4.92); Red Cell Distribution Width 14.1 % (12-17); White Blood Count 13.9 10^3/uL (3.8-11.8)
[2023-12-05 17:13] LABS: Albumin 4.2 g/dL (3.2-5.2); Albumin/Globulin Ratio 1.3 (1-3); C Reactive Protein 16.4 mg/L (<8.01); Calcium 9.8 mg/dL (8.6-10.3); Creatinine, Serum 0.85 mg/dL (0.51-0.95); Globulin 3.3 g/dL (2-4); Potassium 3.8 mmol/L (3.5-5.0); Total Bilirubin 0.6 mg/dL (0.2-1.0); Total Protein 7.5 g/dL (6.4-8.9); eGFR CKD-EPI 71.8 (>60)
[2023-12-05] MEDS: Acetaminophen IV 1 GM/100ML 1,000 MG/100 ML BAG IV ONE (18:11)
[2023-12-05] MEDS: Iohexol 300 (CONTRAST) 10 ML SDV IV ONE (19:43)
[2023-12-05] MEDS: Piperacillin/Tazobac 3.375 BAG 3.375 GM/100 ML BAG IV ONE (20:23)
[2023-12-05 20:49] LABS: Urine Appearance Clear; Urine Bilirubin Negative (Negative); Urine Blood Negative (Negative); Urine Color Yellow; Urine Glucose Negative (Negative); Urine Ketones Negative (Negative); Urine Nitrite Negative (Negative); Urine Protein Negative (Negative); Urine Specific Gravity 1.051 (1.002-1.030); Urine Urobilinogen Negative (Negative)
[2023-12-05] MEDS ORDERED: HYDROmorphone 1 MG/1 ML SYRINGE IV SLOW PU PRN (20:53)
[2023-12-05] MEDS ORDERED: Ondansetron 4 mg VIAL 2 MG/ML 2 ml VIAL IV PRN ×2 (20:53→23:44)
[2023-12-05] MEDS ORDERED: oxyCODONE/Acetamin 5/325 mg TAB PO PRN (20:53)
[2023-12-05] MEDS ORDERED: Bupivacaine 0.25% SDV 30 ML ONE (21:48)
[2023-12-05] MEDS: Lactated Ringers 1000 ml BAG 1,000 ML IV SCH (22:09)
[2023-12-05] MEDS ORDERED: Lidocaine 2% PF 5 ML VIAL ONE (22:27)
[2023-12-05] MEDS ORDERED: fentaNYL 100 mcg/2 ml 50 MCG/ML VIAL ONE (22:27)
[2023-12-05] MEDS ORDERED: Rocuronium 50 mg VIAL 10 mg/ml 5 ml VIAL (50 mg) ONE (22:27)
[2023-12-05] MEDS ORDERED: Ondansetron 4 mg VIAL 2 MG/ML 2 ml VIAL ONE (22:27)
[2023-12-05] MEDS ORDERED: Propofol 10 MG/ML 20 ML BTL ONE (22:27)
[2023-12-05] MEDS ORDERED: Dexamethasone IV 4 MG/ML VIAL 1 ml VIAL ONE (22:27)
[2023-12-05] MEDS ORDERED: Scopolamine 1 mg/72hr PATCH ONE (23:09)
[2023-12-05] MEDS ORDERED: HYDROmorphone 1 MG/1 ML SYRINGE IV PRN (23:44)
[2023-12-05] MEDS ORDERED: Naloxone 0.4 mg VIAL 0.4 mg/ml 1 ml VIAL IV PRN (23:44)
[2023-12-05] MEDS ORDERED: fentaNYL 100 mcg/2 ml 50 MCG/ML VIAL IV PRN (23:44)
[2023-12-06] MEDS: D5W 1/2 NS 40 Meq KCL 1000 ml 1,000 ML IV SCH (02:35)
[2023-12-06] MEDS: Piperacillin/Tazobac 3.375 BAG 3.375 GM/100 ML BAG IV SCH (02:35)
[2023-12-06] MEDS: Enoxaparin 40 MG/0.4 ML SYR SUBCUT SCH (09:15)
[2023-12-06 13:49] VITALS: BP 125/66
== END 2023-12-06 18:44 | disposition home or self-care (01) ==
LOC: EDHOLD 15:32 → ED 15:32 → SSU 22:49
PROVIDERS: ADMIT Surgery; ATTEND Surgery